=== PATIENT | female | born 1970 | race Caucasian/White ===

== ENCOUNTER 2018-09-26 13:13 | Emergency (ER) | payer OTHER ==
[2018-09-26 13:14] VITALS: BMI 24.2
[2018-09-26 13:34] VITALS: RESP 18
--- NOTE | 2018-09-26 14:20 | ED PDOC ---
Arrival/HPI - General Chief Complaint: Anxiety Time Seen by Provider: 09/26/18 13:21 Historian: Patient - History of Present Illness Narrative History of Present Illness (Text): 09/26/18 14:16 47 year old female, with no known past medical history, presents to the emergency department with a complaint of palpitations and diaphoresis since this morning. The patient notes that she has been antibiotics for an infection in her mouth and then another set of antibiotics for H. pylori. She reports that she had an episode similar to this last night where she became diaphoretic in her hands and feet with a mild episode of epistaxis from the right nare. She notes that she feels tender to the left side of her head when she palpates. The patient also notes that she has been experiencing diarrhea intermittently. The patient denies fevers, chills, headache, dizziness, chest pain, shortness of breath, dyspnea on exertion, cough, abdominal pain, nausea, vomiting, diarrhea, back pain, neck pain, urinary/bowel changes, or any other complaint. PMD: Dr. Shepherd Time/Duration: Other (Yesterday) Symptom Onset: Sudden Symptom Course: Unchanged Activities at Onset: Rest, Light Context: Home Past Medical History - Provider Review Nursing Documentation Reviewed: Yes - Infectious Disease Hx of Infectious Diseases: None - Tetanus Immunization Tetanus Immunization: Unknown - Cardiac Hx Cardiac Disorders: No - Pulmonary Hx Tuberculosis: Yes (2016) - Neurological Hx Neurological Disorder: No - HEENT Hx HEENT Disorder: No - Renal Hx Renal Disorder: No - Endocrine/Metabolic Hx Endocrine Disorders: No - Hematological/Oncological Hx Anemia: Yes - Integumentary Hx Dermatological Disorder: No - Musculoskeletal/Rheumatological Hx Musculoskeletal Disorders: No - Gastrointestinal Hx Gastrointestinal Disorders: Yes Other/Comment: ABDOMINAL PAINS, ACID REFLUX - Genitourinary/Gynecological Hx Genitourinary Disorders: No - Psychiatric Hx Psychophysiologic Disorder: No Hx Substance Use: No - Surgical History Hx Cholecystectomy: Yes (2008) - Anesthesia Hx Anesthesia: Yes Hx Anesthesia Reactions: No Family/Social History - Physician Review Nursing Documentation Reviewed: Yes Family/Social History: No Known Family HX Smoking Status: Light Smoker < 10 Cigarettes Daily Hx Alcohol Use: No Hx Substance Use: No Allergies/Home Meds Allergies/Adverse Reactions: Allergies No Known Allergies Allergy (Verified 09/26/18 13:35) Home Medications: Home Meds Medication Instructions Recorded Confirmed Folic Acid 1 mg PO DAILY 09/26/18 09/26/18 Review of Systems - Physician Review All systems were reviewed & negative as marked: Yes - Review of Systems Constitutional: absent: Fevers ENT: absent: Sore Throat Respiratory: absent: SOB, Cough Cardiovascular: Palpitations. absent: Chest Pain, BROWNLEE Gastrointestinal: Diarrhea. absent: Abdominal Pain, Stool Changes, Nausea, Vomiting Genitourinary Female: absent: Urine Output Changes Musculoskeletal: absent: Back Pain, Neck Pain Neurological: Headache (Tender to left side of head). absent: Dizziness Endocrine: Diaphoresis Physical Exam Vital Signs Reviewed: Yes Vital Signs Temp Pulse Resp BP Pulse Ox 09/26/18 13:32 98.8 F 88 18 124/84 98 Temperature: Afebrile Blood Pressure: Normal Pulse: Regular Respiratory Rate: Normal Appearance: Positive for: Well-Appearing, Non-Toxic, Comfortable Pain Distress: None Mental Status: Positive for: Alert and Oriented X 3 - Systems Exam Head: Present: Atraumatic, Normocephalic, Tenderness (Tenderness to palpation of frontal sinus. Tenderness to palpation of parietal scalp.) Pupils: Present: PERRL Extroacular Muscles: Present: EOMI Conjunctiva: Present: Normal Mouth: Present: Moist Mucous Membranes Neck: Present: Normal Range of Motion Respiratory/Chest: Present: Clear to Auscultation, Good Air Exchange. No: Respiratory Distress, Accessory Muscle Use Cardiovascular: Present: Regular Rate and Rhythm, Normal S1, S2. No: Murmurs Abdomen: No: Tenderness, Distention, Peritoneal Signs Back: Present: Normal Inspection Upper Extremity: Present: Normal Inspection. No: Cyanosis, Edema Lower Extremity: Present: Normal Inspection. No: Edema Neurological: Present: GCS=15, CN II-XII Intact, Speech Normal Skin: Present: Warm, Dry, Normal Color. No: Rashes Psychiatric: Present: Alert, Oriented x 3, Normal Insight, Normal Concentration Medical Decision Making ED Course and Treatment: 09/26/18 14:23 Impression: A 47 year old female presents to the emergency department for further evaluation of tenderness to parietal scalp, diaphoresis, palpitations, and diarrhea. Plan: -- EKG -- Sinuses CT -- Chest X-ray -- Labs -- Reassess and disposition Prior Visits: Notes and results from previous visits were reviewed. Progress Notes: 09/26/18 15:17 Labs reviewed with no acute abnormalities. CT sinuses pending. 09/26/18 17:15 CT sinuses negative for sinusitis. Patient and her informed and will follow up with PCP. Patient's informs of patient's recent struggle with her mother's from stomach cancer. 09/26/18 17:35 Patient is in no acute distress. I have discussed the results and plan with the patient, who expresses understanding. Patient in agreement with plan to be discharged home. Patient is stable for discharge. Patient was instructed to follow up with physician or return if symptoms worsen or new concerning symptoms arise. - Lab Interpretations I have reviewed the lab results: Yes - RAD Interpretation Narrative RAD Interpretations (Text): Chest X-ray Dictated By: Shannan Del Castillo MD Date Signed: 09/26/18 1633 IMPRESSION: No focal consolidation. SINUSES WITHOUT CONTRAST Dictated By: Shannan Del Castillo MD Date Signed: 09/26/18 1720 IMPRESSION: The paranasal sinuses appear clear. Mild soft tissue stranding noted anterior to the left mandible. No discrete abscess or fluid collection identified. Please note that images did not extend to include the entirety of the mandible. Otherwise unremarkable study as above. - EKG Interpretation EKG Interpretation (Text): EKG: Ordered, reviewed, and independently interpreted the EKG. Rate : 69 BPM Rhythm : NSR Interpretation : No ST depressions, no T wave inversions, QT interval is normal. Interpreted by ED Physician: Yes Type: 12 lead EKG Disposition/Present on Arrival - Present on Arrival Any Indicators Present on Arrival: No History of DVT/PE: No History of Uncontrolled Diabetes: No Urinary Catheter: No History of Decub. Ulcer: No History Surgical Site Infection Following: None - Disposition Have Diagnosis and Disposition been Completed?: Yes Diagnosis: Anxiety, Sinus pressure Disposition: HOME/ ROUTINE Disposition Time: 17:19 Patient Plan: Discharge Patient Problems: Current Active Problems Problem Status Onset Anxiety Acute Sinus pressure Acute Condition: IMPROVED Discharge Instructions (ExitCare): Anxiety, Adult (DC) Print Language: [place] Additional Instructions: All medical record entries made by the Scribe were at my direction and personally dictated by me. I have reviewed the chart and agree that the record accurately reflects my personal performance of the history, physical exam, medical decision making, and the department course for this patient. I have also personally directed, reviewed, and agree with the discharge instructions and disposition. Referrals: [facility] [place] [Outside] - Follow up with primary Vanesa Bales MD [Medical Doctor] - Follow up with primary Forms: [employer] (Austrian)
[2018-09-26 15:00] LABS: BASO # 0.01 K/mm3 (0.0-2.0); BASO % 0.1 % (0.0-3.0); EOS % 0.5 % (1.5-5.0); GRAN # 6.15 (1.4-6.5); GRAN % 70.1 % (50.0-68.0); HEMOGLOBIN 14.7 g/dL (12.0-16.0); LYMPH # 1.9 (1.2-3.4); LYMPH % 21.9 % (22.0-35.0); MEAN CELL VOLUME 73.3 fl (80.0-105.0); MEAN CORPUSCULAR HEMOGLOBIN 24.3 pg (25.0-35.0); MEAN CORPUSCULAR HGB CONC 33.1 g/dl (31.0-37.0); MONO # 0.7 (0.1-0.6); MONO % 7.4 % (1.0-6.0); PLATELET COUNT 161 10^3/uL (120.0-450.0); RBC 6.06 10^6/uL (3.5-6.1); RED CELL DISTRIBUTION WIDTH 14.5 % (11.5-14.5); WHITE BLOOD COUNT 8.8 10^3/uL (4.5-11.0)
[2018-09-26 15:14] LABS: ALB/GLOB RATIO 1.3 (1.1-1.8); ALBUMIN 4.9 g/dL (3.0-4.8); ALT/SGPT 29 U/L (7-56); AST/SGOT 24 U/L (14-36); BLOOD UREA NITROGEN 9 mg/dL (7-21); CALCIUM 9.7 mg/dL (8.4-10.5); GFR NON-AFRICAN AMERICAN > 60
[2018-09-26] MEDS ORDERED: Sodium Chloride 0.9% 1,000 ML IV STA (15:14)
[2018-09-26 15:26] LABS: TROPONIN I < 0.01 ng/mL
[2018-09-26 15:31] LABS: FREE T4 1.29 ng/dL (0.78-2.19)
[2018-09-26 16:23] LABS: ERYTHROCYTE SEDIMENTATION RATE 15 mm/hr (0.0-20.0)
--- NOTE | 2018-09-26 16:37 | RAD ---
HISTORY: palpitations COMPARISON: None available. TECHNIQUE: Chest, one view. FINDINGS: LUNGS: No focal consolidation. Please note that chest x-ray has limited sensitivity for the detection of pulmonary masses. PLEURA: No significant pleural effusion identified. No definite pneumothorax . CARDIOVASCULAR: Heart size appears within normal limits. No significant atherosclerotic calcification present. OSSEOUS STRUCTURES: No acute osseous abnormality identified. VISUALIZED UPPER ABDOMEN: Right upper quadrant surgical clips. OTHER FINDINGS: None. IMPRESSION: No focal consolidation.
[2018-09-26 17:17] VITALS: BP 128/71; TEMP 97.6; O2SAT 99
--- NOTE | 2018-09-26 17:23 | CT ---
Date of service:09/26/2018 CT sinuses without IV contrast Indication: h/o tooth abscess w/ sinus pain Comparison: None available Technique: Axial computed tomography images were obtained of the sinuses without the use of intravenous contrast. Coronal and sagittal reformatted images were generated and reviewed. This CT exam was performed using 1 or more of the following dose reduction techniques: Automated exposure control, adjustment of the MAA and/or kV according to patient size, and/or use of iterative reconstruction technique. Radiation dose: Total exam DLP = 941.44 mGy-cm. Findings: Mild soft tissue stranding noted anterior to the left mandible. The facial bones appear unremarkable without acute displaced fracture. The orbits appear unremarkable. The temporomandibular joints appear located. The mastoid air cells appear clear. The paranasal sinuses appear clear. The visualized brain appears unremarkable. The soft tissues appear unremarkable. Impression: The paranasal sinuses appear clear. Mild soft tissue stranding noted anterior to the left mandible. No discrete abscess or fluid collection identified. Please note that images did not extend to include the entirety of the mandible. Otherwise unremarkable study as above.
[2018-09-26 17:46] VITALS: PULSE 79
--- NOTE | 2018-09-28 07:35 | CARD ---
APPROVED REPORT Date of service: 09/26/2018 EKG Measurement Heart [id number] <Conclusion> Normal sinus rhythm Normal ECG
== END 2018-09-26 17:24 | disposition home or self-care (01) ==
LOC: ED 13:13
DX: F41.9 Anxiety disorder, unspecified (principal); R09.89 Other specified symptoms and signs involving the circulatory and respiratory systems; D64.9 Anemia, unspecified
CPT/HCPCS: 70486; 71045; 80053; 84439; 84443; 84484; 85025; 85651; 93005; 96360; 99283; J7030